=== PATIENT | female | born 1995 | race Caucasian/White ===

== ENCOUNTER → 2020-06-07 | Outpatient (CLI) | payer OTHER ==
[~2020-06-07] MED LIST: LEVO25TA55 PO
== END | disposition home or self-care (01) ==
LOC: LAB 13:49
PROVIDERS: ATTEND Surgery
DX: Z11.59 Encounter for screening for other viral diseases (principal)
CPT/HCPCS: U0003-CS

== ENCOUNTER → 2020-06-11 | Day surgery (SDC) | payer OTHER ==
[~2020-06-11] MED LIST changes: +IV RINGERS,LACTATED 1000ML 1,000 ML IV SCH; +LIDOCAINE 2% PF 5 ML VIAL. ONE; +PROPOFOL 10 MG/ML (20ML) VIAL. IV ONE
[2020-06-11 12:37] VITALS: BP 104/62
--- NOTE | 2020-06-12 14:07 | PATHOLOGY ---
[facility] Accession Number: [id number] . 01 Material submitted: . stomach - BX ANTRUM . 01 Clinical history: . ruq abd pain, diarrhea . 02 Diagnosis: Gastric biopsy, "antrum rule out H. pylori": - Mild chronic reactive gastropathy. - The immunoperoxidase stain for Helicobacter pylori is negative. . (SHA:mml; 06/12/2020) QLM 06/12/2020 1111 Local . 02 Electronically signed: . Henrry Koenig MD, Pathologist NPI- [id number] . 01 Gross description: . The specimen is received in formalin, labeled "Yonts, Trinh, BX antrum rule out H. pylori" and consists of a fragment of pink-melendrez tissue measuring 0.2 x 0.1 x 0.1 cm which is entirely submitted in A1. ([facility]; 06/11/2020) JFQ/JFQ 06/11/2020 1629 Local . 02 Pathologist provided ICD-10: K31.9 . 02 CPT . 848434, [id number] Specimen Comment: A courtesy copy of this report has been sent to [phone], [phone] Specimen Comment: [id number] Specimen Comment: Report sent to / DR PEARSON Specimen Comment: A duplicate report has been generated due to demographic updates. Performed at: [address] [facility] [address], [place] [id number] MD Frank Mata MD Phone: [phone] Performed at: 02 [facility] [address] [place], [place] [id number] MD Karthik Andrews MD Phone: [phone]
== END ==
LOC: ENDOS 11:20 → EDUNIT# 12:00
PROVIDERS: ATTEND Surgery
DX: R10.11 Right upper quadrant pain (principal); K29.00 Acute gastritis without bleeding; K31.9 Disease of stomach and duodenum, unspecified; E03.9 Hypothyroidism, unspecified; Z98.890 Other specified postprocedural states
CPT/HCPCS: 43239; 81025; 88305; 88342; J2704